=== PATIENT | female | born 1970 | race Caucasian/White ===

== ENCOUNTER 2019-12-22 07:28 | Day surgery (SDC) | payer OTHER, BC ==
[~2019-12-22] VITALS: Ht 162.6 cm; Wt 117.9 kg
[~2019-12-22 07:28] MED LIST: FERROUS SULFAT325 MG PO; IBUPROFEN800 MG PO; LEVOTHYROXINE75 MCG PO; PERCOCET 5-3251 EACH PO; VITAMIN B-12250 MCG PO; ZIAC 5-6.25 MG1 TAB PO
[2019-12-22] MEDS ORDERED: VITAMIN C100 MG (07:42)
--- NOTE | 2019-12-22 08:32 | NUR ---
12/22/19 0832 Sharon Damon 0827- PT ARRIVES TO PACU TALKING WITH STAFF. RESP EVEN AND UNLABORED. OXYGEN SAT HIGH 90'S TO 100% ON 2L VIA NC. PT REPORTS NO PAIN OR NAUSEA. PT IS DROWSY AND DRIFTS TO SLEEP WHEN NOT BEING TALKED TO. 0830- PT PASSING FLAUS. 0832- OXYGEN TITRATED OFF.
--- NOTE | 2019-12-23 09:13 | OR ---
[facility] [address], [place] [address] Signed DATE OF OPERATION: 12/22/2019 SURGEON: Emma Hudson MD PREOPERATIVE DIAGNOSIS: Colon screening. POSTOPERATIVE DIAGNOSIS: Polyps x1 rectosigmoid. PROCEDURE: Total colonoscopy to cecum with cold morcellation polypectomy x1. ANESTHESIA: Intravenous sedation fentanyl 150 mcg, Versed 6 mg. INDICATION: This 49-year-old white woman is a patient of AI Mcqueen of [place], [place] and also patient of Dr. Olivo. She is here for screening colonoscopy. She has no symptoms of bleeding diarrhea or constipation. She has no known family history of colon cancer. She is here for screening colonoscopy. She understands the risks of bleeding, infection, perforation, and other unforeseen complications, understand and she wished to proceed. FINDINGS: The prep was good. Complete colonoscopy was undertaken to the cecum without problem. She had a small polyp of the rectosigmoid, which almost certainly was adenomatous based on its appearance on narrow band imaging. The remaining colon was normal. The polyp was excised completely. PROCEDURE NOTE: The patient was brought to the endoscopy suite and placed in lateral decubitus position given intravenous sedation to the point of slurred speech and nystagmus. Digital rectal examination was normal. An Olympus video colonoscope was passed in the rectum and manipulated throughout the colon ultimately intubating the cecum. The ileocecal valve and appendiceal orifice were normal. The biopsy forceps was used to elevate the mucosa just behind the ileocecal valve, confirming no sign of abnormality there either. The scope was then withdrawn and careful examination showed no sign of abnormality into the rectosigmoid where small Electronically Signed By: EMMA HUDSON MD 12/23/19 0913 PATIENT NAME: KANDY BLANDON OPERATIVE REPORT DATE OF : 68 REPORT #: [id number] PHYSICIAN: EMMA HUDSON MD PCP: KAITLYNN HENDERSON REPORT IS CONFIDENTIAL AND NOT TO BE RELEASED WITHOUT AUTHORIZATION [facility] [address], [place] [address] Signed polyp was noted. It was about 5-7 mm. Narrow band imaging confirmed apparent suggestive of adenomatous change. The polyp was excised completely with a single morcellation polypectomy technique. Retroflexed view of the rectum was normal. Scope was removed and the patient taken to recovery room in good condition. CONCLUDING DIAGNOSIS: Small polyp x1. PLAN: Recommend repeat colonoscopy in 3 years, sooner if clinically indicated. MD YARIEL Deleon/CHIKIS /[id number] cc: AI Mcqueen MD Copies: KAITLYNN HENDERSON MICHAEL JOHN MD ~ Electronically Signed By: EMMA HUDSON MD 12/23/19 0913 PATIENT NAME: KANDY BLANDON MAIDA OPERATIVE REPORT DATE OF : 68 REPORT #: [id number] PHYSICIAN: EMMA HUDSON MD PCP: KAITLYNN HENDERSON REPORT IS CONFIDENTIAL AND NOT TO BE RELEASED WITHOUT AUTHORIZATION
--- NOTE | 2019-12-23 14:28 | PATH ---
[facility] [address] [place], [place] [address] Signed SPECIMEN(S): A RECTOSIGMOID POLYP SPECIMEN SOURCE: A. RECTOSIGMOID POLYP CLINICAL HISTORY: Screening colonoscopy. MICROSCOPIC DESCRIPTION: Histologic sections of all submitted blocks are examined by light microscopy. These findings, together with the gross examination, support the pathologic diagnosis. FINAL PATHOLOGIC DIAGNOSIS: Rectosigmoid polyp, polypectomy: - Hyperplastic polyp. DDF:emb:C2NR GROSS DESCRIPTION: The specimen, labeled "KB, 1," and designated on the requisition "rectosigmoid polyp," is received in formalin and consists of a single gibbs soft tissue fragment that measures 0.6 cm in greatest dimension. The specimen is entirely submitted in cassette (A1). AT (under the direct supervision of a pathologist) The Gross Description was prepared using a voice recognition system. The report was reviewed for accuracy; however, sound-alike word errors, addition and/or deletions may occur. If there is any question about this report, please contact Client Services. PERFORMING LABORATORY: The technical component was performed by [facility], [address] [place] [id number] (Executive Personal Assistant: Kathy Ruffin MD; CLIA# [id number]). [facility], [address] [address] (CLIA# [id number]). Diagnostician: Bertrand Benson DO Pathologist Electronically Signed 12/23/2019 Copies: PATIENT NAME: KANDY BLANDON PATHOLOGY DATE OF : 68 REPORT #: [id number] PHYSICIAN: [facility] PCP: KAITLYNN HENDERSON REPORT IS CONFIDENTIAL AND NOT TO BE RELEASED WITHOUT AUTHORIZATION [address] [address] Signed ~ PATIENT NAME: KANDY BLANDON PATHOLOGY DATE OF : 68 REPORT #: [id number] PHYSICIAN: [facility] PCP: KAITLYNN HENDERSON REPORT IS CONFIDENTIAL AND NOT TO BE RELEASED WITHOUT AUTHORIZATION
== END 2019-12-22 09:22 | disposition home or self-care (01) ==
LOC: DS 07:28 → OPS 07:28 → DS 08:30 → OPS 09:22
PROVIDERS: Surgery
PROC: 0DBN8ZX Excision of Sigmoid Colon, Via Natural or Artificial Opening Endoscopic, Diagnostic (ICD-10-PCS; principal; 2019-12-22 08:30)
DX: Z12.11 Encounter for screening for malignant neoplasm of colon (principal); K63.5 Polyp of colon; K64.9 Unspecified hemorrhoids; I10 Essential (primary) hypertension; E03.9 Hypothyroidism, unspecified; E66.01 Morbid (severe) obesity due to excess calories; Z79.899 Other long term (current) drug therapy; Z68.41 Body mass index [BMI] 40.0-44.9, adult
CPT/HCPCS: 99153; G0500; J2250; J3010; J7121

== ENCOUNTER 2023-09-03 11:54 | Day surgery (SDC) | payer OTHER ==
[~2023-09-03] VITALS: Ht 162.6 cm; Wt 122.7 kg
[~2023-09-03 11:54] MED LIST changes: +VITAMIN C100 MG
[2023-09-03 12:09] VITALS: BP 132/82
--- NOTE | 2023-09-03 14:47 | NUR ---
09/03/23 1447 Danya Valles 1427 PT ARRIVED IN PACU SLEEPY. ABD SOFT AND PASSING FLATUS. 1447 RESTING. REU.
[2023-09-03 16:08] VITALS: BP 110/55
[2023-09-03 16:13] VITALS: BP 112/70
--- NOTE | 2023-09-03 16:19 | NUR ---
1605 [facility] PT IS DROWSY. PT REPORTS NO CURRENT NAUSEA. VITALS TAKEN. PT REPORTS NO PAIN. 1615 PT HAS CALL LIGHT WITHIN REACH, PT HAS PERSONAL ITEMS WITHIN REACH AND SPOUSE SITTING AT BEDSIDE.
--- NOTE | 2023-09-03 16:50 | NUR ---
1635 PT ABLE TO VOID AND REPORTS NO NAUSEA OR PAIN. PT AWAKE AND ORIENTED, AND FEELING WELL ENOUGH TO GO HOME. GONE OVER DISCHARGE INFORMATION. PT AND FAMILY HAVE NO FURTHER QUESTIONS AT THIS TIME. 1640 PT LEFT DAY SURGERY VIA WHEELCHAIR TO FRONT OF HOSPITAL TO SPOUSE IN CAR.
--- NOTE | 2023-09-04 13:59 | OR ---
[facility] [address] [place], [place] [address] Signed DATE OF OPERATION: 09/03/2023 SURGEON: Emma Hudson MD PREOPERATIVE DIAGNOSES: History of hyperplastic polyp and recurrent bouts of acute sigmoid diverticulitis. POSTOPERATIVE DIAGNOSIS: Sigmoid diverticulosis. No evidence of polyps. PROCEDURE: Total colonoscopy to cecum. ANESTHESIA: Intravenous sedation; fentanyl and Versed (total currently uncertain). INDICATION: This 53-year-old woman is a patient of AI Mcqueen. She has had at least two episodes of acute diverticulitis. She has undergone colonoscopy by me in 2019 showing a hyperplastic polyp. She has no family history of colon cancer. She is admitted at this time to undergo colonoscopy to better characterize the current situation. She understands the risk of bleeding, infection, perforation, and so on. FINDINGS: The prep was good. Complete colonoscopy was undertaken to the cecum. She did have sigmoid and left-sided diverticulosis but no evidence of polyps, colitis, or other abnormality. DESCRIPTION OF PROCEDURE: The patient was brought to the endoscopy suite and placed in lateral decubitus position. She was given intravenous sedation but had essentially no response from that despite the IV in her right forearm that appeared to be infusing well. Indeed, fentanyl 100 mcg and Versed 10 mg have been given with no appreciable sedation. The forearm was examined and shown to have findings consistent with infiltration, thus accounting for ineffective sedation at that point. The IV was discontinued and another was placed this time in her right ankle, which infused well. Sedation was then induced with fentanyl 100 mcg and Versed 2 mg, which provided excellent sedation. There was no additional effect from the effect of the previous sedation it appeared. Digital rectal examination was performed, which was normal. An Olympus video colonoscope was passed in the rectum and manipulated throughout the colon noting numerous diverticula of the sigmoid and left Electronically Signed By: EMMA HUDSON MD 09/04/23 1359 PATIENT NAME: KANDY BLANDON OPERATIVE REPORT DATE OF : 68 REPORT #: [id number] PHYSICIAN: EMMA HUDSON MD PCP: KAITLYNN HENDERSON REPORT IS CONFIDENTIAL AND NOT TO BE RELEASED WITHOUT AUTHORIZATION [facility] [address] [place] [id number] Signed colon. Scope was ultimately passed to the cecum. The ileocecal valve and appendiceal orifice were normal. Scope was withdrawn from that point and examination showed no sign of abnormality other than diverticula as previously noted. Retroflexed view was normal as well. The scope was removed. The patient was taken to the recovery room in good condition. CONCLUDING DIAGNOSIS: Diverticulosis. No evidence of polyps, cancer or colitis. PLAN: Recommend a high-fiber diet. A repeat colonoscopy in 10 years would be appropriate, sooner if symptoms should develop. She will return to the ongoing care of AI Mcqueen. MD YARIEL Deleon/CHIKIS /[id number] cc: AI Mcqueen Copies: KAITLYNN HENDERSON ~ Electronically Signed By: EMMA HUDSON MD 09/04/23 1359 PATIENT NAME: KANDY BLANDON [facility] OPERATIVE REPORT DATE OF : 68 REPORT #: [id number] PHYSICIAN: EMMA HUDSON MD PCP: KAITLYNN HENDERSON REPORT IS CONFIDENTIAL AND NOT TO BE RELEASED WITHOUT AUTHORIZATION
== END 2023-09-03 16:40 | disposition home or self-care (01) ==
LOC: OPS 11:54 → DS 11:59 → OPS 13:00 → DS 13:00 → OPS 16:40
PROVIDERS: ATTEND Surgery
PROC: 0DJD8ZZ Inspection of Lower Intestinal Tract, Via Natural or Artificial Opening Endoscopic (ICD-10-PCS; principal; 2023-09-03 13:00)
DX: K57.30 Diverticulosis of large intestine without perforation or abscess without bleeding (principal); Z86.010 Personal history of colon polyps; I10 Essential (primary) hypertension; E03.9 Hypothyroidism, unspecified; E66.01 Morbid (severe) obesity due to excess calories; Z68.42 Body mass index [BMI] 45.0-49.9, adult; Z79.890 Hormone replacement therapy; Z79.899 Other long term (current) drug therapy
CPT/HCPCS: 99153; A9270; G0500; J2250; J2310; J3010; J7121

== ENCOUNTER 2023-09-26 16:04 | Emergency (ER) | payer OTHER ==
[~2023-09-26] VITALS: Ht 162.6 cm; Wt 123.7 kg
--- OUTSIDE RECORDS SUMMARY | ~2023-09-26 | XMS | Continuity of Care Document ---
Demographics + + + | Address | [address] | | | [place] [address] | + + + | Preferred Language | Unknown | + + + | Marital Status | | + + + | Advent Affiliation | Unknown | + + + | Race | White | + + + | Ethnic Group | Not or | + + + Author + + + | Author | [facility] | + + + | Organization | [facility] | + + + | Address | [address] | | | [place] [address] | + + + | Phone | | + + + Care Team Providers + + + + | Care Agriculture Scientist Name | Role | Phone | + + + + Unavailable | Unavailable | + + + + Unavailable | Unavailable | + + + + Allergies No information. Encounters No information. Functional Status No information. Immunizations No information. Medications + + + + | date | description | facility | + + + + | 2023-09-20 00:00 | ondansetron 4 MG | [facility] | | | Disintegrating Oral Tablet | | + + + + | 2023-07-16 00:00 | Levothyroxine Sodium 125 | [facility] | | | MCG Oral Tablet | | + + + + | 2023-07-30 00:00 | Ipratropium-Albuterol | [facility] | | | 0.5-2.5 (3) MG/3ML IN SOLN | | + + + + | 2023-07-30 00:00 | albuterol 0.833 MG/ML / | [facility] | | | ipratropium bromide 0.167 | | | | MG/ML Inhalation Solution | | + + + + | 2023-07-27 00:00 | predniSONE 20 MG Oral | [facility] | | | Tablet | | + + + + | 2023-07-30 00:00 | benzonatate 100 MG Oral | [facility] | | | Capsule | | + + + + | 2023-07-30 00:00 | Benzonatate 100 MG Oral | [facility] | | | Capsule, conventional | | + + + + | 2023-07-31 00:00 | Promethazine-DM 6.25-15 | [facility] | | | MG/5ML Oral Syrup | | + + + + | 2023-07-30 00:00 | azithromycin 250 MG Oral | [facility] | | | Tablet | | + + + + | 2023-07-27 00:00 | prednisone 20 MG Oral | [facility] | | | Tablet | | + + + + | 2023-07-30 00:00 | Albuterol Sulfate HFA 108 | [facility] | | | (90 Base) MCG/ACT | | | | Inhalation Aerosol, | | | | solution | | + + + + | 2023-07-16 00:00 | | [facility] | | | Bisoprolol-hydroCHLOROthiaz | | | | catherine 2.5-6.25 MG Oral Tablet | | | | | | + + + + | 2023-07-30 00:00 | Azithromycin 250 MG Oral | [facility] | | | Tablet | | + + + + | 2023-09-20 00:00 | amoxicillin 875 MG / | [facility] | | | clavulanate 125 MG Oral | | | | Tablet | | + + + + | 2023-07-27 00:00 | Maxalt-SHAKE TABLE OPERATOR 10 MG Oral | [facility] | | | Tablet Disintegrating | | + + + + | 2023-09-20 00:00 | Ondansetron 4 MG Oral | [facility] | | | Tablet Disintegrating | | + + + + | 2023-09-20 00:00 | Amoxicillin-Pot | [facility] | | | Clavulanate 875-125 MG Oral | | | | Tablet | | + + + + | 2023-07-30 00:00 | [id number] 60 ACTUAT | [facility] | | | albuterol 0.09 MG/ACTUAT | | | | Metered Dose Inhaler | | + + + + | 2023-07-27 00:00 | rizatriptan 10 MG | [facility] | | | Disintegrating Oral Tablet | | | | [Maxalt] | | + + + + | 2023-07-16 00:00 | bisoprolol fumarate 2.5 MG | [facility] | | | / hydrochlorothiazide 6.25 | | | | MG Oral Tablet | | + + + + | 2023-07-16 00:00 | levothyroxine sodium 0.125 | [facility] | | | MG Oral Tablet | | + + + + | 2023-07-31 00:00 | dextromethorphan | [facility] | | | hydrobromide 3 MG/ML / | | | | promethazine hydrochloride | | | | 1.25 MG/ML Oral Solution | | + + + + Problems No information. Procedures + + + + | date | description | facility | + + + + | 2023-07-30 00:00 | Inhalation Treatment for | [facility] | | | Acute Airway Obstruction | | + + + + Results/Labs +--------+--------+ +---------+--------+---------+ | test | date | facility | value | unit | notes | +--------+--------+ +---------+--------+---------+ + + | COMPREHENSIVE METABOLIC PANEL | + + + + + +--------+ + + | GLOBULIN | 2023-09-20 | [facility] | 2.2 | g/dl | (missing) | | | 09:16 | [facility] | | | | + + + +--------+ + + | ALKALINE | 2023-09-20 | [facility] | 53 | U/L | (missing) | | PH[facility] | 09:16 | [facility] | | | | + + + +--------+ + + | ALT(SGPT) | 2023-09-20 | [facility] | 16 | U/L | (missing) | | | 09:16 | [facility] | | | | + + + +--------+ + + | ALBUMIN | 2023-09-20 | [facility] | 4.2 | g/dl | (missing) | | | 09:16 | [facility] | | | | + + + +--------+ + + | A/G RATIO | 2023-09-20 | [facility] | 1.9 | (missing) | (missing) | | | 09:16 | [facility] | | | | | | | [facility] | | | | + + + +--------+ + + | CALCIUM | 2023-09-20 | [facility] | 9.0 | mg/dL | (missing) | | | 09:16 | [facility] | | | | | | | [facility] | | | | + + + +--------+ + + | ANION GAP | 2023-09-20 | [facility] | 14.1 | (missing) | (missing) | | | 09:16 | [facility] | | | [facility] | | | | + + + +--------+ + + | AST(SGOT) | 2023-09-20 | [facility] | 14 | U/L | (missing) | | | 09:16 | [facility] | | | | | [facility] | | | | + + + +--------+ + + | BILIRUBIN, | 2023-09-20 | [facility] | 0.57 | mg/dL | (missing) | | TOTAL | 09:16 | [facility] | | | | | | [facility] | | | | + + + +--------+ + + | CARBON | 2023-09-20 | [facility] | 24 | meq/L | (missing) | | DIOXIDE | 09:16 | [facility] | | | | | | | [facility] | | | | + + + +--------+ + + | CHLORIDE | 2023-09-20 | [facility] | 105 | meq/L | (missing) | | | 09:16 | [facility] | | | | | | [facility] | | | | + + + +--------+ + + | CREATININE, | 2023-09-20 | [facility] | 0.80 | mg/dL | (missing) | | SERUM | 09:16 | [facility] | | | | | | | [facility] | | | | + + + +--------+ + + | GLUCOSE | 2023-09-20 | [facility] | 93 | mg/dL | (missing) | | | 09:16 | [facility] | | | | | | [facility] | | | | + + + +--------+ + + | POTASSIUM | 2023-09-20 | [facility] | 4.1 | meq/L | (missing) | | | 09:16 | [facility] | | | | | | | [facility] | | | | + + + +--------+ + + | PROTEIN | 2023-09-20 | [facility] | 6.4 | g/dL | (missing) | | | 09:16 | [facility] | | | | | | | , [facility] | | | | + + + +--------+ + + | SODIUM | 2023-09-20 | [facility] | 139 | meq/L | (missing) | | | 09:16 | [facility] | | | | | | | , [facility] | | | | + + + +--------+ + + | UREA | 2023-09-20 | [facility] | 13 | mg/dL | (missing) | | NITROGEN | 09:16 | [facility] | | | | | | | [facility] | | | | + + + +--------+ + + | | 2023-09-20 | [facility] | 16.3 | (missing) | (missing) | | BUN/CREAT.RA | 09:16 | MEDICAL | | | | | [facility] | | [facility] | | | | + + + +--------+ + + | GFR | 2023-09-20 | [facility] | 88 | ml/min | (missing) | | ESTIMATION | 09:16 | MEDICAL | | | | | | | [facility] | | | | + + + +--------+ + + + + | Reported Physicians | + + + + + + + + + | Reported | 2023-09-20 | [facility] | See Note | (missing) | (missing) | | Physicians | 09:16 | [facility] | | | | | | | [facility] | | | | + + + + + + + Social History +--------+ + + | date | description | facility | +--------+ + + Vital Signs + + + + + | date | measurement | value | units | + + + + + | 2023-07-27 00:00 | BMI | 45.7 | 1 | + + + + + | 2023-07-27 00:00 | BP_diastolic | 92 | mmHg | + + + + + | 2023-07-27 00:00 | BP_systolic | 132 | mmHg | + + + + + | 2023-07-27 00:00 | BSA | 2.2 | 1 | + + + + + | 2023-07-27 00:00 | heart_rate | 1|1| | completed | + + + + + | 2023-07-27 00:00 | heart_rate | 60 | /min | + + + + + | 2023-07-27 00:00 | height_metric | 162.56 | cm | + + + + + | 2023-07-27 00:00 | height_standard | 64 | in | + + + + + | 2023-07-27 00:00 | o2_saturation | 94 | % | + + + + + | 2023-07-27 00:00 | temperature_metric | 36.28 | C | | | | | | + + + + + | 2023-07-27 00:00 | | 97.3 | F | | | temperature_standar | | | | | d | | | + + + + + | 2023-07-27 00:00 | weight_metric | 120.83 | kg | + + + + + | 2023-07-27 00:00 | weight_standard | 266.38 | lb | + + + + + | 2023-07-30 00:00 | BMI | 46 | 1 | + + + + + | 2023-07-30 00:00 | BP_diastolic | 74 | mmHg | + + + + + | 2023-07-30 00:00 | BP_systolic | 132 | mmHg | + + + + + | 2023-07-30 00:00 | BSA | 2.2 | 1 | + + + + + | 2023-07-30 00:00 | heart_rate | 78 | /min | + + + + + | 2023-07-30 00:00 | height_metric | 162.56 | cm | + + + + + | 2023-07-30 00:00 | height_standard | 64 | in | + + + + + | 2023-07-30 00:00 | o2_saturation | 99 | % | + + + + + | 2023-07-30 00:00 | respiration_rate | 18 | /min | + + + + + | 2023-07-30 00:00 | temperature_metric | 36.56 | C | | | | | | + + + + + | 2023-07-30 00:00 | | 97.8 | F | | | temperature_standar | | | | | d | | | + + + + + | 2023-07-30 00:00 | weight_metric | 121.56 | kg | + + + + + | 2023-07-30 00:00 | weight_standard | 268 | lb | + + + + + | 2023-09-20 00:00 | BP_diastolic | 62 | mmHg | + + + + + | 2023-09-20 00:00 | BP_systolic | 124 | mmHg | + + + + + | 2023-09-20 00:00 | heart_rate | 67 | /min | + + + + + | 2023-09-20 00:00 | height_metric | 162.56 | cm | + + + + + | 2023-09-20 00:00 | height_standard | 64 | in | + + + + + | 2023-09-20 00:00 | o2_saturation | 98 | % | + + + + + | 2023-09-20 00:00 | respiration_rate | 18 | /min | + + + + + | 2023-09-20 00:00 | temperature_metric | 36.33 | C | | | | | | + + + + + | 2023-09-20 00:00 | | 97.4 | F | | | temperature_standar | | | | | d | | | + + + + +"
[2023-09-26] MEDS ORDERED: AMOX TR-K CLV1 EAC1 PO (17:02)
[2023-09-26 17:13] VITALS: BP 139/75
== END 2023-09-26 17:15 | disposition home or self-care (01) ==
LOC: ED 16:04
DX: R59.0 Localized enlarged lymph nodes (principal); Z79.899 Other long term (current) drug therapy
CPT/HCPCS: 99282